=== PATIENT | female | born 1990 | race Caucasian/White ===

== ENCOUNTER → 2017-10-15 | Outpatient (CLI) | payer BC ==
[~2017-10-15] MED LIST: AMBIEN; FLEXERIL PO; LOESTRIN 24 FE1 EACH PO; NAPROXEN 500MG500 MG PO; PERCOCET 5-3251 EACH PO; SEROQUEL 50 MG50 M1 PO; ZOLOFT
== END ==
LOC: MRI 05:41
DX: M25.561 Pain in right knee (principal); Z91.81 History of falling

== ENCOUNTER → 2020-08-19 | Outpatient (CLI) | payer OTHER ==
[~2020-08-19] MED LIST changes: +ALLEGRA ALLERG180 MG PO; +CELEXA 10 MG TA10 M1 PO; +FLONASE 0.05%50 MCG NARES; +PEPCID20 MG PO
== END ==
LOC: LAB 10:52
PROVIDERS: ATTEND Specialist
DX: Z01.812 Encounter for preprocedural laboratory examination (principal); Z20.822 Contact with and (suspected) exposure to COVID-19

== ENCOUNTER → 2020-08-23 | Outpatient (CLI) | payer OTHER ==
[~2020-08-23] VITALS: Ht 167.6 cm; Wt 81.7 kg
--- NOTE | 2020-08-28 08:14 | P ---
[facility] [place] [address] PROCEDURE REPORT Name: JASON CERRATO [id number] Admission: 08/23/20 Attend Phys: Ty Chahal Discharge: Date of : 89 Report #: [id number] THIS REPORT FOR: cc: Charlie Fuentes,Charlie Evans,Ty Mitchell MD ~ DATE OF SERVICE: 08/23/2020 PROCEDURE PERFORMED: Colonoscopy with biopsies. HISTORY OF PRESENT ILLNESS: The patient is a 30-year-old female with a history of chronic diarrhea. She has been on a gluten-free and dairy-free diet for some time without much improvement. She has had a laparoscopic cholecystectomy 2 years ago. She denies any blood in her stools. She has tried probiotics without much improvement. She averages 2 loose bowel movements per day. No previous history of colonoscopy. She does report some mild crampy abdominal pain at times and bloating. No family history of colon cancer or inflammatory bowel disease. Upper endoscopy was just performed today showing grade A erosive esophagitis. DESCRIPTION OF PROCEDURE: The risks and benefits of the procedure were explained to the patient, those risks including, but not limited to, bleeding, perforation, and the risk of sedation. She understood these risks and gave informed consent. Sedation was given using propofol per anesthesia. Next, a digital rectal exam was initially performed, which was normal. Next, using a standard Olympus colonoscope, the scope was placed in the patient's anus and advanced under direct vision to the cecum. The overall prep was excellent. Cecum and ileocecal valve were normal in appearance. Terminal ileum was intubated and normal in appearance. The ascending, transverse, descending, and sigmoid colon were all normal. The rectal mucosa was normal. On retroflexion, no abnormalities were noted. Random biopsies were obtained today to rule out the possibility of microscopic colitis. The scope was then withdrawn and the procedure terminated. The patient tolerated the procedure well. IMPRESSION: Normal colonoscopy. RECOMMENDATIONS: 1. Await biopsies. 2. We will start a trial of Questran, as the patient may have bile salt diarrhea with previous laparoscopic cholecystectomy history. [address] [address] PROCEDURE REPORT Name: JASON CERRATO Room #: REG [facility]#: [id number] Admission: 08/23/20 Attend Phys: Ty Chahal Discharge: Date of : 89 Report #: [id number] Thank you for allowing me to participate in her care. <ELECTRONICALLY SIGNED> By: Ty Sahni MD 08/28/20 0814 0931 1711 Ty Sahni MD /nt
--- NOTE | 2020-08-28 08:14 | P ---
[facility] [place] [address] PROCEDURE REPORT Name: JASON CERRATO Room #: REG [facility].#: [id number] Admission: 08/23/20 Attend Phys: Ty Chahal Discharge: Date of : 89 Report #: [id number] THIS REPORT FOR: cc: Charlie Fuentes,Charlie Evans,Ty Mitchell MD ~ DATE OF SERVICE: 08/23/2020 PROCEDURES PERFORMED: Upper endoscopy with biopsies and esophageal dilation. HISTORY OF PRESENT ILLNESS: The patient is a 30-year-old female with a history of gastroesophageal reflux disease, began taking Pepcid b.i.d. 1 week ago with some improvement in her symptoms. She has been clearing her throat often, also complains of dysphagia. No previous history of endoscopy. The patient with some nausea, no emesis, also with diarrhea for the last year. She has been on a gluten-free diet as well as dairy-free diet. Plan is for EGD and colonoscopy today. DESCRIPTION OF PROCEDURE: The risks and benefits of the procedure were explained to the patient, those risks including but not limited to bleeding, perforation and the risk of sedation. She understood these risks and gave informed consent. Sedation was given using propofol per anesthesia. Next, using a standard Olympus upper endoscope, the scope was placed in the patient's mouth and advanced under direct vision through the esophagus, stomach and into the second portion of the duodenum. The larynx was normal in appearance. The upper and mid esophagus was normal. Biopsies were obtained to rule out the possibility of eosinophilic esophagitis. In the distal esophagus, grade A erosive esophagitis was noted. No evidence of stricture. Overall, the gastric mucosa was normal. Biopsies were obtained to rule out H. pylori with her history of abdominal bloating and nausea. The pylorus was normal and patent. The duodenal bulb, first and second portion were all normal. Biopsies were obtained to rule out the possibility of celiac sprue. The scope was then brought back up into the patient's stomach and a Savary guidewire was inserted through the scope, leaving the guidewire in place as the scope was then withdrawn. Next, a 48-Sinhala Savary dilation of her esophagus was then performed without difficulty. The wire and dilator removed. The scope was reintroduced into the patient's stomach. There was no evidence of mucosal tear after dilation. The scope was then withdrawn and the procedure terminated. The patient tolerated the procedure well. IMPRESSION: 1. Grade A erosive esophagitis. 2. Otherwise, normal upper endoscopy. RECOMMENDATIONS: [address] [address] PROCEDURE REPORT Name: DEEJAYBEREJASON BANG Room #: REG [facility]#: [id number] Admission: 08/23/20 Attend Phys: Ty Chahal Discharge: Date of : 89 Report #: [id number] 1. Await biopsy results. 2. Discontinue Pepcid and start daily PPI therapy. 3. Observe the patient post-dilation. Thank you for allowing me to participate in her care. <ELECTRONICALLY SIGNED> By: Ty Sahni MD 08/28/20 0814 0914 1547 Ty Sahni MD /nt
--- NOTE | 2020-08-28 18:09 | PATH ---
[facility] [address] [address] PATHOLOGY RPT PROCEDURE Name: JASON CERRATO Room #: REG [facility].#: [id number] Admission: 08/23/20 Date of : 89 Discharge: Report #: [id number] Path Case #: [id number] [facility] Accession Number: [id number] . 01 Material submitted: . PART A: duodenum - DUODENAL R/O SPRUE PART B: gastrointestinal site - GASTRIC R/O H.PYLORI PART C: gastrointestinal site - ESOPHAGUS R/O EOSINOPHILIC ESOPHAGITIS PART D: colon - RANDOM COLON R/O MICROSCOPIC COLITIS . 01 Clinical history: . DYSPHAGIA/DIARRHEA . 02 Diagnosis: A. Small bowel mucosa, duodenum, endoscopic biopsy: - No diagnostic abnormalities present. - Negative for villous blunting or increase in intraepithelial lymphocytes. . B. Gastric mucosa, gastric R/O H. pylori, endoscopic biopsy: - Moderate reactive gastropathy. - Negative for intestinal metaplasia or atrophy. - Negative for Helicobacter pylori (properly controlled immunohistochemical stain performed). . C. Squamous mucosa, esophagus R/O eosinophilic esophagitis, endoscopic biopsy: - Mild active esophagitis with features of reflux esophagitis. - No increase in intraepithelial eosinophils. - Negative for intestinal metaplasia or dysplasia. . D. Large intestine mucosa, random colon R/O microscopic colitis, endoscopic biopsy: - Nonspecific changes with apoptosis and focal eosinophils within lamina propria, see comment. - Negative for microscopic colitis. - Negative for dysplasia or malignancy. (IUV:fawn; 08/28/2020) S 08/28/2020 1445 Local . 02 Comment: D. Findings are nonspecific, and may be due to medication/drug induced changes, bowel preparation, or a remote/resolved episode of colitis. Active cryptitis is not present. Microscopic colitis is not identified. Please correlate clinically. (IUV:fawn; 08/28/2020) . [address] [address] PATHOLOGY RPT PROCEDURE Name: JASON CERRATO Room #: REG [facility]#: [id number] Admission: 08/23/20 Date of : 89 Discharge: Report #: [id number] Path Case #: [id number] Electronically signed: . Linda Solomon MD, Pathologist NPI- [id number] . 01 Gross description: . A. The specimen is received in formalin, labeled "Jason Hymer, biopsy duodenal". Received are five segments of pale li tissue ranging in size from 0.3-0.4 cm maximum dimensions. The specimen is submitted entirely in cassette A1. . B. The specimen is received in formalin, labeled "Jason Hymer, biopsy gastric". Received are four segments of pale li tissue ranging in size from 0.3-0.4 cm in maximum dimensions. The specimen is submitted entirely in cassette B1. . C. The specimen is received in formalin, labeled "Jason Hymer, biopsy esophagus". Received are three segments of pale li tissue ranging in size from 0.3-0.6 cm in maximum dimensions. The specimen is submitted entirely in cassette C1. . D. The specimen is received in formalin, labeled "Jason Hymer, biopsy random colon". Received are three segments of pale li tissue ranging in size from 0.2-0.8 cm in maximum dimensions. The specimen is submitted entirely in cassette D1. (CAA; 08/27/2020) QAC/QAC 08/27/2020 1107 Local . 02 Pathologist provided ICD-10: K31.9, K20.90, K63.9 . 02 CPT . 462418, 496153, 259722, 429555, L31642 Specimen Comment: A courtesy copy of this report has been sent to [phone] Specimen Comment: Report sent to / Performed at: [address], [place], [place] [id number] MD Denis Esquivel MD Phone: [phone] Performed at: [address] [id number] MD Linda Solomon MD Phone: [phone]
== END | disposition home or self-care (01) ==
LOC: GI 06:58
PROVIDERS: ATTEND Specialist
DX: R19.7 Diarrhea, unspecified (principal); R10.9 Unspecified abdominal pain; K63.9 Disease of intestine, unspecified; K21.00 Gastro-esophageal reflux disease with esophagitis, without bleeding; K31.9 Disease of stomach and duodenum, unspecified; F32.9 Major depressive disorder, single episode, unspecified; F41.9 Anxiety disorder, unspecified; E66.3 Overweight; Z98.890 Other specified postprocedural states; Z79.899 Other long term (current) drug therapy; Z90.49 Acquired absence of other specified parts of digestive tract
CPT/HCPCS: 62110; 62900